=== PATIENT | female | born 1960 | race Caucasian/White ===

== ENCOUNTER 2018-02-20 12:52 | Day surgery (SDC) | payer OTHER ==
[2018-02-20] MEDS ORDERED: MIDAZOLAM 1 MG/ML 2 ML INJ ×2 (15:10→15:11)
[2018-02-20] MEDS ORDERED: FENTAnyl 50 MCG/ML VIAL (15:10)
== END 2018-02-20 18:01 | disposition home or self-care (01) ==
LOC: GIL 12:52
DX: Z12.11 Encounter for screening for malignant neoplasm of colon (principal); K57.90 Diverticulosis of intestine, part unspecified, without perforation or abscess without bleeding
CPT/HCPCS: 45378